=== PATIENT | male | born 1955 | race African-American/Black ===

== ENCOUNTER 2016-07-31 20:02 | Inpatient (IN) | payer MEDICARE ==
[~2016-07-31] VITALS: Ht 170.2 cm; Wt 79.5 kg
[2016-07-31] MEDS ORDERED: SODIUM CHLORIDE 0.9% 1,000 ML IV ONE (20:15)
[2016-07-31 20:43] LABS: BASOPHILS % (AUTO) 0.5 % (0.0-2.0); EOSINOPHILS % (AUTO) 0.2 % (1.0-6.0); HEMATOCRIT 30.2 % (41-53); HEMOGLOBIN 8.9 g/dL (13.5-17.5); LYMPHOCYTES # (AUTO) 0.6 K/uL (1.0-4.8); LYMPHOCYTES % (AUTO) 3.4 % (22.0-44.0); MEAN CORPUSCULAR HEMOGLOBIN 24.4 pg (26.0-34.0); MEAN CORPUSCULAR HGB CONC 29.3 G/dL (31.0-37.0); MEAN CORPUSCULAR VOLUME 83 fL (80-100); MONOCYTES # (AUTO) 0.6 K/uL (0.1-1.0); MONOCYTES % (AUTO) 3.4 % (2.0-9.0); PLATELET COUNT (AUTO) 523 K/uL (150-450); RED BLOOD CELL COUNT(AUTO) 3.63 MIL/uL (4.50-5.90); WHITE BLOOD COUNT (AUTO) 18.4 K/uL (4.5-11.0)
[2016-07-31 20:45] LABS: NEUTROPHILS % (AUTO) 92.5 % (40.0-70.0)
[2016-07-31 21:04] LABS: B-TYPE NATRIURETIC PEPTIDE 18 pg/mL (0-100); RBC MORPHOLOGY COMMENT ABNORMAL RBC MORPH
[2016-07-31 21:14] LABS: ALANINE AMINOTRANSFERASE 58 U/L (12-78); ALBUMIN 3.1 g/dL (3.4-5.0); ANION GAP 17 mmol/L (8-16); ASPARTATE AMINOTRANSFERASE 164 U/L (15-37); BILIRUBIN,TOTAL 0.7 mg/dL (0.1-1.0); CALCIUM, TOTAL 9.5 mg/dL (8.8-10.5); CARBON DIOXIDE 21 mmol/L (22-29); CHLORIDE 92 mmol/L (98-107); CREATINE KINASE MB 1.9 ng/mL (0-5); CREATINE KINASE, TOTAL 101 U/L (39-308); CREATININE 1.92 mg/dL (0.60-1.30); GLOMERULAR FILTR. RATE CALC 44 mL/min (>60); SODIUM SERUM 130 mmol/L (136-145); TOTAL PROTEIN, SERUM 7.7 g/dL (6.4-8.2); UREA NITROGEN, BLOOD 24 mg/dL (7-18)
[2016-07-31 21:19] LABS: INR 1.1 (0.9-1.1); PROTHROMBIN TIME 11.3 SEC (9.4-11.6)
[2016-07-31 21:24] LABS: POTASSIUM 6.3 mmol/L (3.5-5.1)
[2016-07-31] MEDS ORDERED: INSULIN REGULAR, HUMAN 100 UNITS/ML IVP ONE (21:30)
[2016-07-31 22:52] LABS: GLUCOSE,POINT OF CARE 589 MG/DL (70-110)
[2016-07-31 23:57] LABS: GLUCOSE,POINT OF CARE 587 MG/DL (70-110)
[2016-08-01] MEDS ORDERED: ONDANSETRON HCL 4 MG/2 ML VIAL IVP PRN ×2 (00:15→12:00)
[2016-08-01] MEDS ORDERED: 0.9% SODIUM CHLORIDE 10 ML SYRINGE IVP PRN (00:15)
[2016-08-01] MEDS ORDERED: INSULIN REGULAR, HUMAN 100 UNITS/ML SQ PRN (00:15)
[2016-08-01] MEDS ORDERED: DEXTROSE 50%-WATER 25 GM/50 ML SYRINGE IVP PRN ×2 (00:15→12:00)
[2016-08-01] MEDS ORDERED: ACETAMINOPHEN 325 MG TABLET PO PRN ×2 (00:15→12:00)
[2016-08-01 01:52] LABS: GLUCOSE,POINT OF CARE 368 MG/DL (70-110)
[2016-08-01] MEDS ORDERED: HALOPERIDOL LACTATE 5 MG/ML VIAL IM ONE (02:00)
[2016-08-01 08:14] VITALS: BP 105/3
[2016-08-01] MEDS ORDERED: SODIUM CHLORIDE 0.9% 1,000 ML IV SCH (09:45)
[2016-08-01] MEDS ORDERED: ZOLPIDEM TARTRATE 5 MG TABLET PO PRN (12:00)
[2016-08-01] MEDS: SODIUM CHLORIDE 0.9% 1,000 ML IV SCH ×2 (12:00→18:56)
[2016-08-01 12:02] VITALS: BP 102/60
[2016-08-01 12:46] LABS: EOSINOPHILS % (AUTO) 0.6 % (1.0-6.0); HEMATOCRIT 27.3 % (41-53); HEMOGLOBIN 8.1 g/dL (13.5-17.5); LYMPHOCYTES # (AUTO) 1.1 K/uL (1.0-4.8); LYMPHOCYTES % (AUTO) 7.4 % (22.0-44.0); MEAN CORPUSCULAR HEMOGLOBIN 24.1 pg (26.0-34.0); MEAN CORPUSCULAR HGB CONC 29.8 G/dL (31.0-37.0); MEAN CORPUSCULAR VOLUME 81 fL (80-100); MONOCYTES % (AUTO) 6.8 % (2.0-9.0); NEUTROPHILS # (AUTO) 13.2 K/uL (1.8-7.7); PLATELET COUNT (AUTO) 363 K/uL (150-450); RED BLOOD CELL COUNT(AUTO) 3.38 MIL/uL (4.50-5.90); RED CELL DISTRIBUTION WIDTH 20.8 % (11.5-14.5); WHITE BLOOD COUNT (AUTO) 15.5 K/uL (4.5-11.0)
[2016-08-01 12:52] LABS: ALANINE AMINOTRANSFERASE 40 U/L (12-78); ALBUMIN 2.5 g/dL (3.4-5.0); ANION GAP 9 mmol/L (8-16); ASPARTATE AMINOTRANSFERASE 37 U/L (15-37); BILIRUBIN,TOTAL 0.4 mg/dL (0.1-1.0); CALCIUM, TOTAL 8.5 mg/dL (8.8-10.5); CARBON DIOXIDE 26 mmol/L (22-29); CHLORIDE 100 mmol/L (98-107); CREATININE 0.92 mg/dL (0.60-1.30); GLOMERULAR FILTR. RATE CALC > 60 mL/min (>60); POTASSIUM 4.8 mmol/L (3.5-5.1); SODIUM SERUM 135 mmol/L (136-145); TOTAL PROTEIN, SERUM 6.4 g/dL (6.4-8.2); UREA NITROGEN, BLOOD 17 mg/dL (7-18)
[2016-08-01 13:21] LABS: NEUTROPHILS % (AUTO) 85.2 % (40.0-70.0); RBC MORPHOLOGY COMMENT ABNORMAL RBC MORPH
[2016-08-01 16:33] VITALS: BP 120/56
[2016-08-01] MEDS: HEPARIN SODIUM,PORCINE 5,000 UNITS/ML VIAL SQ SCH ×2 (18:47→23:50)
[2016-08-01] MEDS: INSULIN ASPART 100 UNITS/ML SQ PRN (18:48)
[2016-08-01 19:48] VITALS: BP 112/65
[2016-08-01] MEDS: HALOPERIDOL 5 MG TABLET PO SCH (20:54)
[2016-08-02] MEDS: SODIUM CHLORIDE 0.9% 1,000 ML IV SCH ×4 (01:20→21:20)
[2016-08-02 01:59] VITALS: BP 112/59
[2016-08-02 06:06] VITALS: BP 104/65
[2016-08-02 08:06] VITALS: BP 115/75
[2016-08-02] MEDS: HEPARIN SODIUM,PORCINE 5,000 UNITS/ML VIAL SQ SCH ×3 (08:08→23:22)
[2016-08-02] MEDS: PANTOPRAZOLE SODIUM 40 MG/VIAL IVP SCH (08:08)
[2016-08-02] MEDS: HALOPERIDOL 5 MG TABLET PO SCH ×2 (08:09→20:32)
[2016-08-02 12:05] VITALS: BP 119/76
[2016-08-02] MEDS: INSULIN ASPART 100 UNITS/ML SQ PRN ×3 (12:05→20:36)
[2016-08-02 19:27] LABS: GLUCOSE,POINT OF CARE 359 MG/DL (70-110)
[2016-08-02] MEDS: INSULIN DETEMIR 100 UNITS/ML SQ SCH (20:35)
[2016-08-02 20:41] VITALS: BP 142/72
[2016-08-03 04:22] VITALS: BP 141/94
[2016-08-03] MEDS: SODIUM CHLORIDE 0.9% 1,000 ML IV SCH ×2 (05:33→10:40)
[2016-08-03 07:11] VITALS: BP 138/80
[2016-08-03] MEDS: HEPARIN SODIUM,PORCINE 5,000 UNITS/ML VIAL SQ SCH (08:00)
[2016-08-03] MEDS: INSULIN DETEMIR 100 UNITS/ML SQ SCH (09:00)
[2016-08-03] MEDS: HALOPERIDOL 5 MG TABLET PO SCH (09:00)
[2016-08-03] MEDS: PANTOPRAZOLE SODIUM 40 MG/VIAL IVP SCH (09:00)
[2016-08-03] MEDS ORDERED: LEVOFLOXACIN 250 MG TABLET PO SCH (11:00)
[2016-08-03 18:22] LABS: GLUCOSE,POINT OF CARE 225 MG/DL (70-110)
[2016-08-03] MEDS ORDERED: INSULIN DETEMIR 100 UNITS/ML SQ SCH (21:00)
== END 2016-08-03 11:25 | disposition left against medical advice (07) | DRG 885 ==
LOC: EEVIPCON 20:04 → EMS 20:04 → 5S 08-01 00:53 → 5N 08-03 04:50 → 5S 08-03 06:26
PROVIDERS: ADMIT Hospitalist; ATTEND Hospitalist
DX: F23 Brief psychotic disorder (principal); N39.0 Urinary tract infection, site not specified; E11.65 Type 2 diabetes mellitus with hyperglycemia; R62.7 Adult failure to thrive; E87.5 Hyperkalemia; I10 Essential (primary) hypertension; N28.9 Disorder of kidney and ureter, unspecified; Z53.29 Procedure and treatment not carried out because of patient's decision for other reasons; Z85.46 Personal history of malignant neoplasm of prostate; Z68.27 Body mass index [BMI] 27.0-27.9, adult; Z91.19 Patient's noncompliance with other medical treatment and regimen
CPT/HCPCS: 82962; 93005; 96361; 96372; 96374; 99285; C9113; G0480; J1630; J1644; J1815; J2405; J7030